=== PATIENT | female | born 1970 | race Caucasian/White ===

== ENCOUNTER 2019-01-29 17:12 | Inpatient (IN) | payer MEDICAID, OTHER ==
[~2019-01-29] VITALS: Ht 162.6 cm; Wt 75.7 kg
[~2019-01-29 17:12] MED LIST: QUET200T PO
[2019-01-29 18:43] LABS: BASOPHILS % (AUTO) 0.4 % (0.0-2.0); EOSINOPHILS % (AUTO) 2.4 % (1.0-6.0); HEMATOCRIT 42.7 % (36-46); HEMOGLOBIN 13.9 g/dL (12.0-16.0); LYMPHOCYTES # (AUTO) 1.5 K/uL (1.0-4.8); LYMPHOCYTES % (AUTO) 19.3 % (22.0-44.0); MEAN CORPUSCULAR HGB CONC 32.7 G/dL (31.0-37.0); MEAN CORPUSCULAR VOLUME 89 fL (80-100); MONOCYTES # (AUTO) 0.5 K/uL (0.1-1.0); MONOCYTES % (AUTO) 6.5 % (2.0-9.0); NEUTROPHILS # (AUTO) 5.5 K/uL (1.8-7.7); NEUTROPHILS % (AUTO) 71.4 % (40.0-70.0); PLATELET COUNT (AUTO) 221 K/uL (150-450); RED BLOOD CELL COUNT(AUTO) 4.81 MIL/uL (4.00-5.20); RED CELL DISTRIBUTION WIDTH 14.3 % (11.5-14.5)
[2019-01-29 18:54] LABS: ANION GAP 10 mmol/L (8-16); CALCIUM, TOTAL 8.9 mg/dL (8.8-10.5); CARBON DIOXIDE 25 mmol/L (22-29); CHLORIDE 107 mmol/L (98-107); CREATININE 0.78 mg/dL (0.60-1.30); GLOMERULAR FILTR. RATE CALC > 60 mL/min (>60); GLUCOSE,RANDOM 107 mg/dL (70-110); POTASSIUM 3.1 mmol/L (3.5-5.1); SODIUM SERUM 142 mmol/L (136-145); UREA NITROGEN, BLOOD 15 mg/dL (7-18)
[2019-01-29 18:59] LABS: ALANINE AMINOTRANSFERASE 16 U/L (12-78); ALBUMIN 4.1 g/dL (3.4-5.0); ALKALINE PHOSPHATASE 75 U/L (46-116); ASPARTATE AMINOTRANSFERASE 21 U/L (15-37); BILIRUBIN,TOTAL 0.7 mg/dL (0.1-1.0); TOTAL PROTEIN, SERUM 7.8 g/dL (6.4-8.2)
[2019-01-29] MEDS ORDERED: POTASSIUM CHLORIDE 10% 40 MEQ/30 ML LIQUID UDCUP PO ONE (20:00)
[2019-01-29] MEDS ORDERED: ZOLPIDEM TARTRATE 10 MG TABLET PO PRN (21:00)
[2019-01-29 21:04] LABS: AMPHET/METH SCREEN,URINE NEGATIVE (NEGATIVE); BARBITURATE SCREEN, URINE NEGATIVE (NEGATIVE); BENZODIAZEPINES SCREEN,URINE NEGATIVE (NEGATIVE); CANNABINOID SCREEN,URINE NEGATIVE (NEGATIVE); COCAINE SCREEN,URINE NEGATIVE (NEGATIVE); METHADONE SCREEN, URINE NEGATIVE (NEGATIVE); OPIATE SCREEN,URINE NEGATIVE (NEGATIVE); PHENCYCLIDINE SCREEN,URINE NEGATIVE (NEGATIVE)
[2019-01-30 00:38] VITALS: BP 141/73
[2019-01-30] MEDS ORDERED: ALBUTEROL SULFATE HFA 90 MCG/PUFF 8 GM INHALER IH PRN (06:45)
[2019-01-30] MEDS ORDERED: MAGNESIUM HYDROXIDE SUSPENSION 30 ML UDCUP PO PRN (06:45)
[2019-01-30] MEDS ORDERED: IBUPROFEN 400 MG TABLET PO PRN (06:45)
[2019-01-30] MEDS ORDERED: MAG HYDROX/AL HYDROX/SIMETH ES 30 ML SUSPENSION UDCUP PO PRN (06:45)
[2019-01-30] MEDS ORDERED: NICOTINE 14 MG/24 HOUR PATCH TD PRN (06:45)
[2019-01-30] MEDS ORDERED: CloNIDine HCL 0.1 MG TABLET PO PRN (06:45)
[2019-01-30] MEDS ORDERED: LOPERAMIDE HCL 2 MG CAPSULE PO PRN (06:45)
[2019-01-30] MEDS ORDERED: GuaiFENesin/D-METHORPHAN [SUGAR-FREE] 200-20MG/10 ML SYRUP UDCUP PO PRN (06:45)
[2019-01-30] MEDS ORDERED: ONDANSETRON HCL 4 MG TABLET PO PRN (06:45)
[2019-01-30] MEDS ORDERED: DOCUSATE SODIUM 100 MG CAPSULE PO PRN (06:45)
[2019-01-30] MEDS ORDERED: ACETAMINOPHEN 325 MG TABLET PO PRN (06:45)
[2019-01-30] MEDS ORDERED: PETROLATUM,WHITE 28 GM JELLY TP PRN (06:45)
[2019-01-30 08:20] VITALS: BP 143/87
[2019-01-30] MEDS: AmLODIPine BESYLATE 5 MG TABLET PO SCH (08:24)
[2019-01-30 09:13] LABS: HEMOGLOBIN A1C 5.5 % (4.5-6.2)
[2019-01-30 09:30] LABS: CHOL/HDL RATIO 3.8 (3.9-5.7); FREE T4 (FREE THYROXINE) 0.91 ng/dL (0.76-1.46); POTASSIUM 3.6 mmol/L (3.5-5.1); THYROID STIMULATING HORMONE 0.25 uIU/mL (0.36-3.74)
[2019-01-30] MEDS: HALOPERIDOL 5 MG TABLET PO PRN (12:41)
[2019-01-30] MEDS: LORazepam 2 MG TABLET PO PRN (12:41)
[2019-01-30 16:20] VITALS: BP 140/72
[2019-01-30] MEDS: OLANZapine 5 MG TABLET PO SCH (17:00)
[2019-01-31 06:40] VITALS: BP 132/68
[2019-01-31 08:28] VITALS: BP 129/77
[2019-01-31] MEDS: HALOPERIDOL 5 MG TABLET PO PRN ×2 (09:22→16:47)
[2019-01-31] MEDS: LORazepam 2 MG TABLET PO PRN ×2 (09:22→16:46)
[2019-01-31] MEDS: OLANZapine 5 MG TABLET PO SCH ×2 (09:23→16:46)
[2019-01-31] MEDS: AmLODIPine BESYLATE 5 MG TABLET PO SCH (09:23)
[2019-01-31 16:32] VITALS: BP 136/76
[2019-02-01 06:21] VITALS: BP 131/74
[2019-02-01 08:00] VITALS: BP 130/61
[2019-02-01] MEDS: AmLODIPine BESYLATE 5 MG TABLET PO SCH (08:37)
[2019-02-01] MEDS: OLANZapine 5 MG TABLET PO SCH ×2 (08:37→17:01)
[2019-02-01 16:21] VITALS: BP 128/76
[2019-02-01] MEDS: LORazepam 2 MG TABLET PO PRN (17:01)
[2019-02-01] MEDS: HALOPERIDOL 5 MG TABLET PO PRN (17:01)
[2019-02-02 06:59] VITALS: BP 125/71
[2019-02-02 08:11] VITALS: BP 151/78
[2019-02-02] MEDS: AmLODIPine BESYLATE 5 MG TABLET PO SCH (08:16)
[2019-02-02] MEDS: OLANZapine 5 MG TABLET PO SCH ×2 (08:16→16:20)
[2019-02-02] MEDS: LORazepam 2 MG TABLET PO PRN (08:17)
[2019-02-02 10:00] VITALS: BP 138/74
[2019-02-02 16:16] VITALS: BP 115/64
[2019-02-03 06:29] VITALS: BP 133/79
[2019-02-03 08:11] VITALS: BP 135/88
[2019-02-03] MEDS: AmLODIPine BESYLATE 5 MG TABLET PO SCH (08:39)
[2019-02-03] MEDS: OLANZapine 5 MG TABLET PO SCH ×2 (08:39→17:04)
[2019-02-03] MEDS: LORazepam 2 MG TABLET PO PRN (13:16)
[2019-02-03 16:01] VITALS: BP 124/81
[2019-02-04 06:22] VITALS: BP 112/72
[2019-02-04] MEDS: LORazepam 2 MG TABLET PO PRN (08:07)
[2019-02-04] MEDS: AmLODIPine BESYLATE 5 MG TABLET PO SCH (08:07)
[2019-02-04] MEDS: OLANZapine 5 MG TABLET PO SCH ×2 (08:07→16:17)
[2019-02-04 08:22] VITALS: BP 126/79
[2019-02-04 16:04] VITALS: BP 145/74
[2019-02-05 05:55] VITALS: BP 141/76
[2019-02-05 08:13] VITALS: BP 130/76
[2019-02-05] MEDS: AmLODIPine BESYLATE 5 MG TABLET PO SCH (08:15)
[2019-02-05] MEDS: OLANZapine 5 MG TABLET PO SCH ×2 (08:15→16:21)
[2019-02-05 16:08] VITALS: BP 117/79
[2019-02-06 07:09] VITALS: BP 120/72
[2019-02-06 08:24] VITALS: BP 121/73
[2019-02-06] MEDS: AmLODIPine BESYLATE 5 MG TABLET PO SCH (10:14)
[2019-02-06] MEDS: OLANZapine 5 MG TABLET PO SCH ×2 (10:14→16:25)
[2019-02-06 16:08] VITALS: BP 129/76
[2019-02-07] VITALS: BP 134/74
[2019-02-07] MEDS: AmLODIPine BESYLATE 5 MG TABLET PO SCH (08:02)
[2019-02-07] MEDS: LORazepam 2 MG TABLET PO PRN (08:02)
[2019-02-07] MEDS: OLANZapine 5 MG TABLET PO SCH ×2 (08:02→16:45)
[2019-02-07 08:18] VITALS: BP 126/72
[2019-02-07 16:16] VITALS: BP 124/73
[2019-02-08 06:20] VITALS: BP 121/70
[2019-02-08 08:25] VITALS: BP 140/88
[2019-02-08] MEDS: OLANZapine 5 MG TABLET PO SCH ×2 (08:31→16:48)
[2019-02-08] MEDS: AmLODIPine BESYLATE 5 MG TABLET PO SCH (08:31)
[2019-02-08 16:04] VITALS: BP 140/85
[2019-02-08] MEDS ORDERED: ARIPiprazole ER SUSPENSION 400 MG PRE-FILLED DUAL CHAMBER SYRINGE IM ONE (17:00)
[2019-02-09 06:07] VITALS: BP 130/81
[2019-02-09 08:14] VITALS: BP 145/75
[2019-02-09] MEDS: AmLODIPine BESYLATE 5 MG TABLET PO SCH (08:36)
[2019-02-09] MEDS: OLANZapine 5 MG TABLET PO SCH (08:36)
[2019-02-09] MEDS ORDERED: OLAN5TAB2 PO (09:26)
[2019-02-09] MEDS ORDERED: AMLO5TAB9 PO (09:27)
[2019-03-08] MEDS ORDERED: ARIPiprazole ER SUSPENSION 400 MG PRE-FILLED DUAL CHAMBER SYRINGE IM SCH (09:00)
== END 2019-02-09 13:31 | disposition home or self-care (01) | DRG 751 ==
LOC: EMS 17:14 → B2S 21:00 → B3A 01-30 10:05
PROVIDERS: ADMIT Psychiatry & Neurology Child & Adolescent Psychiatry; ATTEND Psychiatry & Neurology Child & Adolescent Psychiatry
DX: F29 Unspecified psychosis not due to a substance or known physiological condition (principal); F20.0 Paranoid schizophrenia; R45.851 Suicidal ideations; Z59.0 Homelessness; E87.6 Hypokalemia; R45.87 Impulsiveness; I10 Essential (primary) hypertension; K21.9 Gastro-esophageal reflux disease without esophagitis
CPT/HCPCS: 83036; 84132; 84439; 84443; G0480; J0401